=== PATIENT | male | born 1970 | race Caucasian/White ===

== ENCOUNTER → 2021-07-19 | Outpatient (CLI) | payer MEDICARE, OTHER | LOC: EXRD 15:37 | DX: M79.671 Pain in right foot (principal) | CPT/HCPCS: 93971 ==

== ENCOUNTER → 2021-08-12 | Outpatient (CLI) | payer MEDICARE, OTHER ==
[2021-08-12 10:48] LABS: HEMOGLOBIN 15.3 gm/dl (14.0-17.5); RED BLOOD COUNT 4.6 M/UL (4.20-5.50); WHITE BLOOD COUNT 9.1 K/UL (4.5-11.0)
[2021-08-13 08:14] LABS: A/G RATIO 1.3 (1.2-2.2); ALKALINE PHOSPHATASE, S 85 IU/L (44-121); ALT (SGPT) 15 IU/L (0-44); AST (SGOT) 20 IU/L (0-40); BILIRUBIN, TOTAL 0.3 mg/dL (0.0-1.2); BUN 11 mg/dL (6-24); BUN/CREATININE RATIO 14 (9-20); CALCIUM, SERUM 8.9 mg/dL (8.7-10.2); CARBON DIOXIDE, TOTAL 23 mmol/L (20-29); CHLORIDE, SERUM 102 mmol/L (96-106); CREATININE, SERUM 0.76 mg/dL (0.76-1.27); EGFR IF AFRICN AM 122 (>59); EGFR IF NONAFRICN AM 106 (>59); GLOBULIN, TOTAL 3.1 g/dL (1.5-4.5); GLUCOSE, SERUM 97 mg/dL (65-99); POTASSIUM, SERUM 4.2 mmol/L (3.5-5.2); SODIUM, SERUM 138 mmol/L (134-144)
[2021-08-13 11:14] LABS: RHEUMATOID ARTHRITIS FACTOR <10.0 IU/mL (<14.0)
== END ==
LOC: LAB 09:49
PROVIDERS: Nurse Practitioner Primary Care
DX: M25.50 Pain in unspecified joint (principal); M79.671 Pain in right foot; M19.042 Primary osteoarthritis, left hand
CPT/HCPCS: 36415; 73130; 80053; 84550; 85025; 86038; 86431